=== PATIENT | female | born 1985 | race Caucasian/White ===

== ENCOUNTER → 2023-12-25 | Outpatient (CLI) | payer BC ==
[2023-12-25 10:34] LABS: Basophils # (A) 0.06 X 10*3/uL (0.00-0.10); Basophils % (A) 0.6 %; Eosinophils # (A) 0.14 X 10*3/uL (0.04-0.35); Eosinophils % (A) 1.5 %; HCT 41.1 % (37.2-46.3); HGB 13.3 g/dL (12.0-15.0); Lymphocytes # (A) 4.43 X 10*3/uL (0.90-5.00); Lymphocytes % (A) 47.8 %; MCH 30.5 pg (27.0-32.0); MCHC 32.4 g/dL (32.0-37.0); MCV 94.3 FL (80.0-97.0); Mean Platelet Volume 11.1 FL (9.5-12.2); Monocytes # (A) 0.74 X 10*3/uL (0.20-1.00); NRBC Per 100 WBC 0 X 10*3/uL (0.00-0.01); Neutrophils # (A) 3.88 X 10*3/uL (1.80-7.70); Neutrophils % (A) 41.9 %; Platelet Count 267 X 10*3/uL (140-440); RBC 4.36 X 10*6/uL (4.10-5.20); RDW 12.8 % (11.5-14.5); WBC 9.27 X 10*3/uL (4.50-10.00)
[2023-12-25 10:41] LABS: ALT 14 U/L (8-44); AST 17 U/L (13-35); Albumin 4.3 g/dL (3.8-4.9); Albumin/Globulin Ratio 1.54 Ratio (1.60-3.17); Alkaline Phosphatase 71 U/L (41-126); BUN/Creat Ratio 13.38 Ratio (12.00-20.00); Blood Urea Nitrogen 10.7 mg/dL (9.0-27.0); Calcium 9.5 mg/dL (8.7-10.3); Carbon Dioxide 24.7 mmol/L (21.6-31.8); Chloride 106 mmol/L (96-109); Chol/HDL Ratio 4.33 Ratio; Globulin 2.8 g/dL (1.6-3.3); Glucose 100 mg/dL (70-110); Potassium 3.9 mmol/L (3.5-5.5); Sodium 141 mmol/L (135-145); Total Bilirubin 0.2 mg/dL (0.3-1.2); Total Protein 7.1 g/dL (6.2-8.2)
== END | disposition home or self-care (01) ==
LOC: LABWHC1 07:10
PROVIDERS: ATTEND Registered Nurse
DX: Z00.00 Encounter for general adult medical examination without abnormal findings (principal)
CPT/HCPCS: 36415; 80053; 80061; 85025

== ENCOUNTER 2024-04-14 17:35 | Emergency (ER) | payer BC ==
--- NOTE | 2024-04-14 18:11 | ED ---
Lower Extremity Injury HPI - History of Present Illness Complaint: foot injury Time: 16:15 Injury: Foot: Right Type of Injury: blunt <Marito Olivares - Last Filed: 04/14/24 18:09> <Stanley Martinez - Last Filed: 04/15/24 00:25> - General Stated Complaint: IHS-R heel injury - History of Present Illness Initial Comments: This is a 38-year-old female with right heel injury. 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 Patient states that she requires evaluation and imaging for work- related purposes. Denies bleeding or open wound on affected heel. States she is ambulating without difficulty or assistance. No other injury. (Marito Olivares) 38-year-old female presenting with chief complaint of right foot injury. She states that very heavy cart hit her foot at work. She is having heel pain. She came here because she wanted to make report about the incident. There is no wound. She admits to pain with weightbearing. There is some swelling to the back of the foot. Denies any other injury or trauma. (Stanley Martinez) - Related Data Allergies Allergy/AdvReac Type Severity Reaction Status Date / Time hydrocodone Allergy Nausea & Verified 04/14/24 19:25 Vomiting Review of Systems ROS Other: All systems not noted in ROS Statement are negative. <Marito Olivares - Last Filed: 04/14/24 18:09> ROS Other: All systems not noted in ROS Statement are negative. <Stanley Martinez - Last Filed: 04/15/24 00:25> ROS Statement: Those systems with pertinent positive or pertinent negative responses have been documented in the HPI. General Exam <Marito Olivares - Last Filed: 04/14/24 18:09> General appearance: alert, in no apparent distress Head exam: Present: atraumatic, normocephalic Eye exam: Present: normal appearance Neck exam: Present: normal inspection Respiratory exam: Absent: respiratory distress Cardiovascular Exam: Present: regular rate Right Foot/Toe exam: Present: full ROM, tenderness, swelling Neurological exam: Present: alert, oriented X3 Psychiatric exam: Present: normal affect, normal mood Skin exam: Present: warm, dry <Stanley Martinez - Last Filed: 04/15/24 00:25> - General Exam Comments Initial Comments: Visual Physical Exam Vital signs reviewed General: Well-appearing, nontoxic, no acute distress. Head: Normocephalic, atraumatic Eyes: PERRLA, EOMI ENT: Airway patent Chest: Nonlabored breathing Skin: No visual rash, normal skin tone Neuro: Alert and oriented 3 Musculoskeletal: No gross abnormalities (Marito Olivares) Course Vital Signs 04/14/24 19:22 Temperature 98.7 F Pulse Rate 76 Respiratory 18 Rate Blood Pressure 146/99 O2 Sat by Pulse 100 Oximetry Medical Decision Making <Marito Olivares - Last Filed: 04/14/24 18:09> <Stanley Martinez - Last Filed: 04/15/24 00:25> - Medical Decision Making I completed the quick note portion of this chart signed LATIA Bunn (Marito Olivares) Was pt. sent in by a medical professional or institution ([facility]ardo, SO[employer], urgent care, hospital, or usp...) When possible be specific @ -No Did you speak to anyone other than the patient for history (EMS, parent, family, police, friend...)? What history was obtained from this source @ -No Did you review nursing and triage notes (agree or disagree)? Why? @ -I reviewed and agree with nursing and triage notes Were old charts reviewed (outside hosp., previous admission, EMS record, old EKG, old radiological studies, urgent care reports/EKG's, usp records)? Report findings @ -No old charts were reviewed Differential Diagnosis (chest pain, altered mental status, abdominal pain women, abdominal pain men, vaginal bleeding, weakness, fever, dyspnea, syncope, headache, dizziness, GI bleed, back pain, seizure, CVA, palpatations, mental health, musculoskeletal)? @ -Differential Musculoskeletal Muscular strain, contusion, ligament sprain, fracture, arthritis, septic arthritis, bursitis, cellulitis, muscle spasm, nerve compression, DVT, arterial occlusion, herpes zoster, electrolyte abnormality, tumor.... This is not meant to be in all inclusive list EKG interpreted by me (3pts min.). @ -As above X-rays interpreted by me (1pt min.). @ -X-ray shows no evidence of acute fracture. Calcaneal plantar spurring. CT interpreted by me (1pt min.). @ -None done U/S interpreted by me (1pt. min.). @ -None done What testing was considered but not performed or refused? (CT, X-rays, U/S, labs)? Why? @ -None What meds were considered but not given or refused? Why? @ -None Did you discuss the management of the patient with other professionals (professionals i.e. , PA, SOFT TILE SETTER, lab, RT, psych nurse, social insurance adviser, shale processing technician, teacher, district fire management officer, pillowcase turner)? Give summary @ -No Was smoking cessation discussed for >3mins.? @ -No Was critical care preformed (if so, how long)? @ -No Were there social determinants of health that impacted care today? How? (Homelessness, low income, unemployed, alcoholism, drug addiction, transp ortation, low edu. Level, literacy, decrease access to med. care, group home, rehab)? @ -No Was there de-escalation of care discussed even if they declined (Discuss DNR or withdrawal of care, Hospice)? DNR status @ -No What co-morbidities impacted this encounter? (DM, HTN, Smoking, COPD, CAD, Cancer, CVA, ARF, Chemo, Hep., AIDS, mental health diagnosis, sleep apnea, morbid obesity)? @ -None Was patient admitted / discharged? Hospital course, mention meds given and route, prescriptions, significant lab abnormalities, going to OR and other pertinent info. @ -38-year-old female presenting with chief complaint of of right foot injury at work today. X-ray is negative for fracture or dislocation. Patient is provided with postop shoe and crutches while recovering. Educated on supportive management and findings today. Discharged. Follow-up with PCP. Report back to ER with any new or worsening symptoms. Discussed return parameters and answered all questions. Patient conveyed verbal understanding and agreed to the plan. I discussed this case in detail with my attending Dr. Amado Undiagnosed new problem with uncertain prognosis? @ -No Drug Therapy requiring intensive monitoring for toxicity (Heparin, Nitro, Insulin, Cardizem)? @ -No Were any procedures done? @ -No Diagnosis/symptom? @ -Foot injury Acute, or Chronic, or Acute on Chronic? @ -Acute Uncomplicated (without systemic symptoms) or Complicated (systemic symptoms)? @ -uncomplicated Side effects of treatment? @ -No Exacerbation, Progression, or Severe Exacerbation? @ -No Poses a threat to life or bodily function? How? (Chest pain, USA, AR, pneumonia, PE, COPD, DKA, ARF, appy, cholecystitis, CVA, Diverticulitis, Homicidal, Suicidal, threat to staff... and all critical care pts) @ -Unlikely (Stanley Martinez) Disposition <Marito Olivares - Last Filed: 04/14/24 18:09> Is patient prescribed a controlled substance at d/c from ED?: No Time of Disposition: 20:03 <Stanley Martinez - Last Filed: 04/15/24 00:25> Clinical Impression: Foot injury Disposition: HOME SELF-CARE Condition: Good Instructions (If sedation given, give patient instructions): Foot Sprain (ED) Additional Instructions: Follow-up with PCP. Report back to ER with any new or worsening symptoms. Take Motrin and Tylenol as needed for pain control. Rest ice and elevate the foot. Referrals: Nonstaff,Physician [Primary Care Provider] - 1-2 days
[2024-04-14 19:25] VITALS: BP 146/99; PULSE 76; RESP 18; TEMP 98.7
--- NOTE | 2024-04-14 19:50 | XR ---
EXAMINATION TYPE: XR foot complete RT DATE OF EXAM: 04/14/2024 7:44 PM CLINICAL INDICATION: Female, 38 years old with history of R heel injury; H COMPARISON: None TECHNIQUE: XR foot complete RT examined in the AP, oblique, and lateral projections. FINDINGS: No evidence of any acute osseous pathology. Calcaneal plantar spurring is present. IMPRESSION: 1. No evidence of acute fracture. 2. Calcaneal plantar spurring. [facility], , 04/14/2024 7:47 PM
== END 2024-04-14 20:33 | disposition home or self-care (01) ==
LOC: EC 17:35
CPT/HCPCS: 99283